=== PATIENT | male | born 1950 | race Asian ===

== ENCOUNTER → 2018-12-28 | Outpatient (CLI) | payer MEDICARE, MEDICAID | END | disposition home or self-care (01) | LOC: PVL 11:40 | PROVIDERS: ATTEND Internal Medicine Cardiovascular Disease | DX: I70.201 Unspecified atherosclerosis of native arteries of extremities, right leg (principal) | CPT/HCPCS: 93923 ==

== ENCOUNTER 2019-02-09 06:46 | Day surgery (SDC) | payer MEDICARE, MEDICAID ==
[~2019-02-09] VITALS: Ht 170.2 cm; Wt 104.3 kg
[2019-02-09] MEDS ORDERED: LIDOCAINE HCL 1% 20ML VIAL (Pyxis) INJ ONE (07:34)
[2019-02-09] MEDS ORDERED: FENTANYL CITRATE/PF 50MCG/ML 2ML VIAL ONE (07:34)
[2019-02-09] MEDS ORDERED: IODIXANOL 320MG/ML 100 ML BOTTLE IV ONE (07:34)
[2019-02-09] MEDS ORDERED: MIDAZOLAM HCL 2 MG/2 ML VIAL ONE (07:35)
[2019-02-09 07:54] LABS: BASOPHILS % 0.8 % (0.0-2.0); EOSINOPHILS % 6.9 % (0.0-5.0); HEMATOCRIT. 37.1 % (42.0-52.0); HEMOGLOBIN. 12.6 g/dL (14.0-18.0); LYMPHOCYTES % 27.2 % (20.0-50.0); MEAN CORPUSCULAR HEMOGLOBIN 31.9 pg (28.0-32.0); MEAN CORPUSCULAR VOLUME 93.7 fL (80.0-94.0); MEAN PLATELET VOLUME 8.7 fl (7.4-10.4); MONOCYTES % 8.5 % (2.0-8.0); NEUTROPHILS % 56.6 % (40.0-76.0); PLATELET 191 x1000/uL (130-400); RED BLOOD CELL COUNT 3.96 mill/uL (4.7-6.1); RED CELL DISTRIBUTION WIDTH 15.4 % (11.6-14.6)
[2019-02-09 07:58] LABS: PARTIAL THROMBOPLASTIN TIME 29.6 sec (23.4-31.0); PROTHROMBIN TIME 9.9 sec (9.6-11.0)
[2019-02-09] MEDS ORDERED: ALLO100T PO (08:31)
[2019-02-09] MEDS ORDERED: LOSA25TA26 PO (08:31)
[2019-02-09] MEDS ORDERED: ASPI-1393 PO (08:31)
[2019-02-09] MEDS ORDERED: GABA-290 PO (08:31)
[2019-02-09] MEDS ORDERED: CLOP75TA33 PO (08:31)
[2019-02-09] MEDS ORDERED: CARV12.545 PO (08:31)
[2019-02-09] MEDS ORDERED: FOLI-43 PO (08:31)
[2019-02-09] MEDS ORDERED: CRES10 PO (08:31)
[2019-02-09] MEDS ORDERED: FURO20TA4 PO (08:31)
[2019-02-09] MEDS ORDERED: SODIUM CHLORIDE 0.9% 1,000 ML IV SCH (09:15)
== END 2019-02-09 15:20 | disposition home or self-care (01) ==
LOC: CCL 06:46
PROVIDERS: ATTEND Internal Medicine Cardiovascular Disease
DX: I73.9 Peripheral vascular disease, unspecified (principal); I21.9 Acute myocardial infarction, unspecified; I12.9 Hypertensive chronic kidney disease with stage 1 through stage 4 chronic kidney disease, or unspecified chronic kidney disease; E11.65 Type 2 diabetes mellitus with hyperglycemia; E11.22 Type 2 diabetes mellitus with diabetic chronic kidney disease; N18.3 Chronic kidney disease, stage 3 (moderate); I25.10 Atherosclerotic heart disease of native coronary artery without angina pectoris; Z86.73 Personal history of transient ischemic attack (TIA), and cerebral infarction without residual deficits; Z88.8 Allergy status to other drugs, medicaments and biological substances; Z79.82 Long term (current) use of aspirin; Z79.899 Other long term (current) drug therapy
CPT/HCPCS: 36246; 36415; 75710; 80048; 85025; 85610; 85730; 99152; C1760; C1769; C1893; J1644; J2250; J3010; J3490; J7040; Q9967; G0500